=== PATIENT | male | born 1955 | race Two or more races ===

== ENCOUNTER 2023-06-30 08:15 | Inpatient (IN) | payer MEDICARE, MEDICAID ==
[~2023-06-30] VITALS: Ht 188 cm; Wt 83.0 kg
[2023-06-30 08:51] VITALS: RESP 18; O2SAT 98
[2023-06-30 09:14] LABS: Basophils # (auto) 0 10 ^3/uL (0-0.2); Basophils % (auto) 0.5 % (0.0-2.0); Eosinophils # (auto) 0 10 ^3/uL (0-0.8); Eosinophils % (auto) 0.2 % (0.0-7.0); Hematocrit 41.5 % (41.0-53.0); Hemoglobin 13.4 g/dL (13.5-17.5); Lymphocytes # (auto) 1.6 10 ^3/uL (0.4-5.4); Lymphocytes % (auto) 17.7 % (10.0-50.0); Mean Corpuscular Hgb Conc. 32.4 g/dL (32.0-36.0); Mean Corpuscular Volume 95.6 fL (80.0-100.0); Monocytes # (auto) 1.2 10 ^3/uL (0-1.3); Monocytes % (auto) 13.3 % (0.0-12.0); Neutrophils % (auto) 68.3 % (37.0-80.0); Nucleated Red Blood Cells % 0.1 %; Red Blood Cells 4.34 10^6/uL (4.5-5.90); White Blood Cell 8.8 10^3/uL (4.4-10.8)
[2023-06-30 09:31] LABS: Alanine Aminotransferase 50 U/L (7-40); Alkaline Phosphatase 147 U/L (46-116); Anion Gap 11 (5-15); Aspartate Aminotransferase 75 U/L (13-40); BUN/Creatinine Ratio 19.6 (10.0-20.0); Bilirubin, Total 2.8 mg/dL (0.2-1.0); Blood Alcohol < 3.0 mg/dL (<10); Blood Urea Nitrogen 27 mg/dL (9-23); Calcium 9.5 mg/dL (8.7-10.4); Carbon Dioxide 23 mmol/L (20-30); Chloride 110 mmol/L (98-107); Glucose 102 mg/dL (74-106); Potassium 4.3 mmol/L (3.5-5.1); Sodium 144 mmol/L (136-145); Total Protein 6.4 g/dL (5.7-8.2)
[2023-06-30] MEDS ORDERED: ENOXAPARIN SOD 100 MG/1 ML SYRINGE SC ONE (09:45)
[2023-06-30] MEDS ORDERED: ASPirin 325 MG TAB PO ONE (09:45)
[2023-06-30] MEDS ORDERED: OLAN1TAB19 PO (11:55)
[2023-06-30] MEDS ORDERED: TRAZ-228 PO (11:55)
[2023-06-30] MEDS ORDERED: SERT-206 PO (11:55)
[2023-06-30] MEDS ORDERED: GABA-1250 PO (11:55)
[2023-06-30] MEDS ORDERED: DILT-104 PO (11:55)
[2023-06-30] MEDS ORDERED: ISOS120T4 PO (11:55)
[2023-06-30] MEDS ORDERED: HYDR-4298 PO (11:55)
[2023-06-30] MEDS ORDERED: MORPHINE SULFATE INJ 2 MG/ml SYRG IV PRN (12:00)
[2023-06-30] MEDS ORDERED: ACETAMINOPHEN 325 MG TAB PO PRN (12:00)
[2023-06-30] MEDS ORDERED: ONDANSETRON HCL 4 MG/2 ML VIAL IV PRN (12:00)
[2023-06-30] MEDS ORDERED: LORazepam 2MG/ML-1ML VIAL IM ONE (12:00)
[2023-06-30] MEDS ORDERED: NITROGLYCERIN 0.4 MG SL TAB SL PRN (12:00)
[2023-06-30] MEDS ORDERED: DOCUSATE SOD 100 MG CAP PO PRN (12:00)
[2023-06-30] MEDS ORDERED: LABETALOL HCL 5 MG/ML 4ML SYRINGE IV PRN (12:15)
[2023-06-30 12:40] LABS: INR 1.42 (0.9-1.15); Partial Thromboplastin Time 29.5 SEC (24.5-34.5); Prothrombin Time 14.6 sec (9.3-11.8)
[2023-06-30] MEDS ORDERED: PATIENTS OWN MEDICATION (Hydralazine Hcl 1 TAB) PO SCH (14:00)
[2023-06-30] MEDS: GABAPENTIN 300 MG CAP PO SCH ×2 (14:35→22:00)
[2023-06-30 15:40] VITALS: PULSE 147; RESP 24; O2SAT 93
[2023-06-30] MEDS ORDERED: LORazepam 2MG/ML-1ML VIAL IV PRN (15:45)
[2023-06-30] MEDS ORDERED: LORazepam 2MG/ML-1ML VIAL ONE (15:51)
[2023-06-30] MEDS ORDERED: METOPROLOL TARTRATE 1MG/1ML-5ML VIAL IV ONE (16:00)
[2023-06-30] MEDS ORDERED: FUROSEMIDE 40 MG/4 ML VIAL IV ONE (16:15)
[2023-06-30 16:38] LABS: Urine Bacteria NONE SEEN /hpf (None Seen); Urine Blood Negative /uL (Negative); Urine Clarity Clear (Clear); Urine Color Yellow (Yellow); Urine Hyaline Cast FEW /lpf (0 - 2); Urine Protein, UAD 1+ (Negative); Urine Specific Gravity 1.029 (1.001-1.035); Urine WBC 2 /hpf (0 - 3); Urine pH 5.5 (5.0-8.0)
[2023-06-30] MEDS ORDERED: dilTIAZem 25 MG/5 ML VIAL IV ONE (16:45)
[2023-06-30 16:52] LABS: Amphetamine Screen, Urine Neg (NEGATIVE); Barbiturate Scree,Urine Neg (NEGATIVE); Benzodiazephine Screen, Urine Neg (NEGATIVE); Cannabinoid Screen, Urine Pos (NEGATIVE); Cocaine Screen, Urine Neg (NEGATIVE); Opiate Scree,Urine Neg (NEGATIVE); Phencyclidine Screen, Urine Neg (NEGATIVE)
[2023-06-30] MEDS: dilTIAZem 125mg/125ml BAG KIT 100 ML IV SCH (16:57)
[2023-06-30] MEDS: FUROSEMIDE 20 MG/2 ML VIAL IV SCH (18:28)
[2023-06-30 19:42] VITALS: PULSE 101; RESP 22; O2SAT 98
[2023-06-30] MEDS: ATORVASTATIN 20 MG TAB PO SCH (22:00)
[2023-06-30] MEDS ORDERED: OLANZAPINE PO SCH (22:00)
[2023-06-30] MEDS: traZODone HCL 50 MG TAB PO SCH (22:00)
[2023-06-30] MEDS: hydrALAZINE HCL 25 MG TAB PO SCH (22:00)
[2023-07-01] MEDS: dilTIAZem 125mg/125ml BAG KIT 100 ML IV SCH (00:22)
[2023-07-01 05:10] LABS: Basophils # (auto) 0.1 10 ^3/uL (0-0.2); Basophils % (auto) 1.1 % (0.0-2.0); Eosinophils # (auto) 0.3 10 ^3/uL (0-0.8); Eosinophils % (auto) 3.4 % (0.0-7.0); Hematocrit 39.2 % (41.0-53.0); Lymphocytes # (auto) 1.4 10 ^3/uL (0.4-5.4); Lymphocytes % (auto) 18.5 % (10.0-50.0); Mean Corpuscular Hemoglobin 31.2 pg (28.0-32.0); Mean Corpuscular Hgb Conc. 33.2 g/dL (32.0-36.0); Mean Corpuscular Volume 93.9 fL (80.0-100.0); Monocytes # (auto) 0.9 10 ^3/uL (0-1.3); Monocytes % (auto) 11.9 % (0.0-12.0); Neutrophils # (auto) 4.8 10 ^3/uL (1.6-8.6); Neutrophils % (auto) 65.1 % (37.0-80.0); Nucleated Red Blood Cells % 0.1 %; Red Blood Cells 4.17 10^6/uL (4.5-5.90); Red Cell Distribution Width 15.8 % (11.8-14.3); White Blood Cell 7.4 10^3/uL (4.4-10.8)
[2023-07-01] MEDS: GABAPENTIN 300 MG CAP PO SCH ×3 (05:27→23:02)
[2023-07-01] MEDS: hydrALAZINE HCL 25 MG TAB PO SCH ×3 (05:28→21:35)
[2023-07-01] MEDS: FUROSEMIDE 20 MG/2 ML VIAL IV SCH ×2 (05:28→18:00)
[2023-07-01] MEDS: MORPHINE SULFATE INJ 2 MG/ml SYRG IV PRN ×2 (05:30→09:33)
[2023-07-01 05:32] LABS: Alanine Aminotransferase 47 U/L (7-40); Alkaline Phosphatase 125 U/L (46-116); Calcium 8.6 mg/dL (8.7-10.4); Carbon Dioxide 28 mmol/L (20-30); Chloride 109 mmol/L (98-107); Glucose 91 mg/dL (74-106); Potassium 3.3 mmol/L (3.5-5.1)
[2023-07-01 05:33] LABS: Albumin 3.2 g/dL (3.2-4.8); Anion Gap 4 (5-15); Aspartate Aminotransferase 67 U/L (13-40); BUN/Creatinine Ratio 20.6 (10.0-20.0); Bilirubin, Total 1.5 mg/dL (0.2-1.0); Blood Urea Nitrogen 28 mg/dL (9-23); Sodium 141 mmol/L (136-145); Total Protein 5.2 g/dL (5.7-8.2)
[2023-07-01 05:45] LABS: LDL Cholesterol 71 mg/dL (< 100); Triglycerides 78 mg/dL (< 150)
[2023-07-01 05:46] LABS: Cholesterol 124 mg/dL (< 200); HDL Cholesterol 39 mg/dL (40-59)
[2023-07-01 07:25] VITALS: PULSE 109; RESP 20; O2SAT 95
[2023-07-01] MEDS: SERTRALINE HCL 50 MG TAB PO SCH (09:28)
[2023-07-01] MEDS: ASPirin-EC 81 mg tab PO SCH (09:28)
[2023-07-01] MEDS: ENOXAPARIN SOD 100 MG/1 ML SYRINGE SC SCH ×2 (09:28→23:01)
[2023-07-01] MEDS: METOPROLOL SUCCINATE XL 50 MG TAB PO SCH (09:32)
[2023-07-01] MEDS ORDERED: PATIENTS OWN MEDICATION (Isosorbide Mononitrate (Isosorbide Mononitrate Er) 1 TAB) PO SCH (10:00)
[2023-07-01] MEDS ORDERED: ENOXAPARIN SOD 40 MG/0.4 ML SYRINGE SC SCH (10:00)
[2023-07-01] MEDS ORDERED: PANTOPRAZOLE 40 MG/10 ML VIAL INJ IV SCH (10:00)
[2023-07-01] MEDS ORDERED: dilTIAZem 120MG ER CAP PO SCH (10:00)
[2023-07-01] MEDS ORDERED: POTASSIUM CHL 20 Meq TABLET PO ONE (10:15)
[2023-07-01] MEDS ORDERED: CALCIUM GLUC 1,000mg/50ml-NS 50 ML IV ONE ×2 (15:45→15:54)
[2023-07-01 20:58] VITALS: PULSE 56; RESP 24; O2SAT 93
[2023-07-01] MEDS ORDERED: ALBUMIN 5% 250 ML IV ONE (21:30)
[2023-07-01] MEDS: ATORVASTATIN 20 MG TAB PO SCH (23:01)
[2023-07-01] MEDS: traZODone HCL 50 MG TAB PO SCH (23:02)
[2023-07-02 05:18] LABS: Basophils # (auto) 0 10 ^3/uL (0-0.2); Basophils % (auto) 0.5 % (0.0-2.0); Eosinophils # (auto) 0.3 10 ^3/uL (0-0.8); Eosinophils % (auto) 3.5 % (0.0-7.0); Hemoglobin 12.8 g/dL (13.5-17.5); Mean Corpuscular Hgb Conc. 32.8 g/dL (32.0-36.0); Mean Corpuscular Volume 94.6 fL (80.0-100.0); Monocytes # (auto) 1.2 10 ^3/uL (0-1.3); Monocytes % (auto) 15.5 % (0.0-12.0); Neutrophils # (auto) 4.4 10 ^3/uL (1.6-8.6); Neutrophils % (auto) 55.5 % (37.0-80.0); Red Blood Cells 4.12 10^6/uL (4.5-5.90); Red Cell Distribution Width 15.9 % (11.8-14.3); White Blood Cell 7.8 10^3/uL (4.4-10.8)
[2023-07-02 05:36] LABS: Alanine Aminotransferase 73 U/L (7-40); Albumin 3.6 g/dL (3.2-4.8); Alkaline Phosphatase 123 U/L (46-116); Anion Gap 5 (5-15); Aspartate Aminotransferase 118 U/L (13-40); BUN/Creatinine Ratio 17.8 (10.0-20.0); Bilirubin, Total 1.1 mg/dL (0.2-1.0); Blood Urea Nitrogen 31 mg/dL (9-23); Calcium 8.9 mg/dL (8.7-10.4); Carbon Dioxide 27 mmol/L (20-30); Chloride 106 mmol/L (98-107); Glucose 102 mg/dL (74-106); Potassium 3.9 mmol/L (3.5-5.1); Sodium 138 mmol/L (136-145); Total Protein 5.9 g/dL (5.7-8.2)
[2023-07-02] MEDS: MORPHINE SULFATE INJ 2 MG/ml SYRG IV PRN ×2 (05:48→12:32)
[2023-07-02] MEDS: FUROSEMIDE 20 MG/2 ML VIAL IV SCH ×2 (06:00→18:07)
[2023-07-02] MEDS: hydrALAZINE HCL 25 MG TAB PO SCH ×2 (06:00→12:33)
[2023-07-02] MEDS: GABAPENTIN 300 MG CAP PO SCH ×3 (06:33→22:08)
[2023-07-02 07:30] VITALS: PULSE 97; RESP 16; O2SAT 95
[2023-07-02] MEDS: HYDROcodone-ACET 5/325MG TAB PO PRN (09:00)
[2023-07-02] MEDS: ENOXAPARIN SOD 100 MG/1 ML SYRINGE SC SCH (09:50)
[2023-07-02] MEDS: ASPirin-EC 81 mg tab PO SCH (09:51)
[2023-07-02] MEDS: SERTRALINE HCL 50 MG TAB PO SCH (09:51)
[2023-07-02] MEDS: PANTOPRAZOLE 40 MG TAB PO SCH (09:51)
[2023-07-02] MEDS: METOPROLOL SUCCINATE XL 50 MG TAB PO SCH (09:51)
[2023-07-02] MEDS: OLANZapine 5 MG TAB PO SCH (09:52)
[2023-07-02] MEDS ORDERED: LOSARTAN POTASSIUM 50 MG TAB PO SCH (10:00)
[2023-07-02] MEDS ORDERED: ISOSORBIDE MONONITRATE ER 60 MG TAB PO SCH (10:00)
[2023-07-02 11:05] VITALS: RESP 18
[2023-07-02 12:38] VITALS: BP 115/54; PULSE 79; RESP 19; TEMP 98.2; O2SAT 95
[2023-07-02 17:00] VITALS: BP 112/77; PULSE 97; RESP 17; TEMP 98.3; O2SAT 93
[2023-07-02 20:00] VITALS: PULSE 100; RESP 18; O2SAT 97
[2023-07-02 22:00] VITALS: BP 109/67; PULSE 82; RESP 20; TEMP 97.5; O2SAT 96
[2023-07-02] MEDS: APIXABAN 5 MG TAB PO SCH (22:08)
[2023-07-02] MEDS: traZODone HCL 50 MG TAB PO SCH (22:08)
[2023-07-02] MEDS: ATORVASTATIN 20 MG TAB PO SCH (22:12)
[2023-07-03] VITALS (7 sets, daily range): BP systolic 119–139; BP diastolic 44–92; PULSE 64–107; RESP 16–18; TEMP 97.8–98.4; O2SAT 91–95
[2023-07-03] MEDS: GABAPENTIN 300 MG CAP PO SCH ×3 (05:09→21:10)
[2023-07-03] MEDS: FUROSEMIDE 20 MG/2 ML VIAL IV SCH ×2 (05:09→17:45)
[2023-07-03] MEDS: MORPHINE SULFATE INJ 2 MG/ml SYRG IV PRN ×3 (05:10→21:14)
[2023-07-03 06:27] LABS: Basophils # (auto) 0.1 10 ^3/uL (0-0.2); Basophils % (auto) 1.3 % (0.0-2.0); Eosinophils # (auto) 0.3 10 ^3/uL (0-0.8); Eosinophils % (auto) 5.5 % (0.0-7.0); Hemoglobin 12.6 g/dL (13.5-17.5); Lymphocytes # (auto) 1.4 10 ^3/uL (0.4-5.4); Lymphocytes % (auto) 23.4 % (10.0-50.0); Mean Corpuscular Hemoglobin 31.5 pg (28.0-32.0); Mean Corpuscular Volume 95.6 fL (80.0-100.0); Monocytes # (auto) 0.7 10 ^3/uL (0-1.3); Monocytes % (auto) 11.6 % (0.0-12.0); Neutrophils # (auto) 3.4 10 ^3/uL (1.6-8.6); Neutrophils % (auto) 58.2 % (37.0-80.0); Nucleated Red Blood Cells % 0.2 %; Red Blood Cells 3.98 10^6/uL (4.5-5.90); White Blood Cell 5.9 10^3/uL (4.4-10.8)
[2023-07-03 06:40] LABS: Alanine Aminotransferase 87 U/L (7-40); Alkaline Phosphatase 120 U/L (46-116); Anion Gap 5 (5-15); BUN/Creatinine Ratio 17.7 (10.0-20.0); Blood Urea Nitrogen 26 mg/dL (9-23); Calcium 8.9 mg/dL (8.7-10.4); Carbon Dioxide 30 mmol/L (20-30); Chloride 106 mmol/L (98-107); Glucose 99 mg/dL (74-106); Potassium 5.1 mmol/L (3.5-5.1); Sodium 141 mmol/L (136-145)
[2023-07-03 06:41] LABS: Albumin 3.8 g/dL (3.2-4.8); Aspartate Aminotransferase 111 U/L (13-40); Bilirubin, Total 0.7 mg/dL (0.2-1.0); Total Protein 5.8 g/dL (5.7-8.2)
[2023-07-03] MEDS: SERTRALINE HCL 50 MG TAB PO SCH (09:14)
[2023-07-03] MEDS: OLANZapine 5 MG TAB PO SCH (09:14)
[2023-07-03] MEDS: ASPirin-EC 81 mg tab PO SCH (09:14)
[2023-07-03] MEDS: METOPROLOL SUCCINATE XL 50 MG TAB PO SCH (09:15)
[2023-07-03] MEDS: LOSARTAN POTASSIUM 25 MG TAB PO SCH (09:16)
[2023-07-03] MEDS: PANTOPRAZOLE 40 MG TAB PO SCH (09:16)
[2023-07-03] MEDS: APIXABAN 5 MG TAB PO SCH ×2 (09:16→21:10)
[2023-07-03] MEDS: NICOTINE 14 MG/24HR TOPICAL PATCH TD SCH (09:19)
[2023-07-03] MEDS: HYDROcodone-ACET 5/325MG TAB PO PRN (14:55)
[2023-07-03] MEDS: traZODone HCL 50 MG TAB PO SCH (21:09)
[2023-07-03] MEDS: ATORVASTATIN 20 MG TAB PO SCH (21:10)
[2023-07-04] MEDS: HYDROcodone-ACET 5/325MG TAB PO PRN ×2 (03:21→08:59)
[2023-07-04 05:10] VITALS: BP 131/78; PULSE 93; RESP 20; TEMP 98; O2SAT 97
[2023-07-04] MEDS: GABAPENTIN 300 MG CAP PO SCH ×2 (06:19→13:50)
[2023-07-04] MEDS: FUROSEMIDE 20 MG/2 ML VIAL IV SCH ×2 (06:20→18:00)
[2023-07-04] MEDS: MORPHINE SULFATE INJ 2 MG/ml SYRG IV PRN (06:21)
[2023-07-04 06:29] LABS: Alanine Aminotransferase 68 U/L (7-40); Albumin 3.9 g/dL (3.2-4.8); Alkaline Phosphatase 119 U/L (46-116); Anion Gap 3 (5-15); Aspartate Aminotransferase 65 U/L (13-40); BUN/Creatinine Ratio 19.1 (10.0-20.0); Blood Urea Nitrogen 26 mg/dL (9-23); Calcium 8.7 mg/dL (8.7-10.4); Carbon Dioxide 33 mmol/L (20-30); Chloride 105 mmol/L (98-107); Glucose 86 mg/dL (74-106); Potassium 4.4 mmol/L (3.5-5.1); Sodium 141 mmol/L (136-145)
[2023-07-04 06:30] LABS: Bilirubin, Total 0.8 mg/dL (0.2-1.0); Total Protein 5.9 g/dL (5.7-8.2)
[2023-07-04 06:31] LABS: Basophils # (auto) 0.1 10 ^3/uL (0-0.2); Basophils % (auto) 1.1 % (0.0-2.0); Eosinophils # (auto) 0.3 10 ^3/uL (0-0.8); Eosinophils % (auto) 4.7 % (0.0-7.0); Hematocrit 37.9 % (41.0-53.0); Hemoglobin 12.5 g/dL (13.5-17.5); Lymphocytes # (auto) 0.9 10 ^3/uL (0.4-5.4); Lymphocytes % (auto) 14.4 % (10.0-50.0); Mean Corpuscular Hemoglobin 31.3 pg (28.0-32.0); Mean Corpuscular Hgb Conc. 32.9 g/dL (32.0-36.0); Mean Corpuscular Volume 95.3 fL (80.0-100.0); Monocytes # (auto) 0.9 10 ^3/uL (0-1.3); Monocytes % (auto) 14.4 % (0.0-12.0); Neutrophils # (auto) 4.1 10 ^3/uL (1.6-8.6); Neutrophils % (auto) 65.4 % (37.0-80.0); Nucleated Red Blood Cells % 0.1 %; Red Blood Cells 3.98 10^6/uL (4.5-5.90); Red Cell Distribution Width 15.9 % (11.8-14.3); White Blood Cell 6.3 10^3/uL (4.4-10.8)
[2023-07-04 08:00] VITALS: PULSE 97
[2023-07-04] MEDS: ASPirin-EC 81 mg tab PO SCH (08:58)
[2023-07-04] MEDS: SERTRALINE HCL 50 MG TAB PO SCH (08:58)
[2023-07-04] MEDS: OLANZapine 5 MG TAB PO SCH (08:59)
[2023-07-04] MEDS: LOSARTAN POTASSIUM 25 MG TAB PO SCH (08:59)
[2023-07-04 09:00] VITALS: BP 128/82; PULSE 61; RESP 14; TEMP 98; O2SAT 95
[2023-07-04] MEDS: NICOTINE 14 MG/24HR TOPICAL PATCH TD SCH (09:00)
[2023-07-04] MEDS: METOPROLOL SUCCINATE XL 50 MG TAB PO SCH (09:00)
[2023-07-04] MEDS: APIXABAN 5 MG TAB PO SCH (09:00)
[2023-07-04] MEDS: PANTOPRAZOLE 40 MG TAB PO SCH (09:00)
[2023-07-04] MEDS ORDERED: METO-6 PO (11:37)
[2023-07-04] MEDS ORDERED: OLAN1TAB7 PO (11:37)
[2023-07-04] MEDS ORDERED: LOS25T PO (11:37)
[2023-07-04] MEDS ORDERED: ATOR20TA50 PO (11:37)
[2023-07-04] MEDS ORDERED: GABA-1250 PO (11:37)
[2023-07-04] MEDS ORDERED: TRAZ-227 PO (11:37)
[2023-07-04] MEDS ORDERED: APIX5TAB PO (11:37)
[2023-07-04] MEDS ORDERED: FURO1TAB31 PO (11:37)
[2023-07-04] MEDS ORDERED: SERT50TA PO (11:37)
[2023-07-04 13:00] VITALS: BP 117/66; PULSE 96; RESP 18; TEMP 96.1; O2SAT 94
[2023-07-04 17:00] VITALS: BP 144/93; PULSE 110; RESP 18; TEMP 97.7; O2SAT 93
== END 2023-07-04 18:15 | disposition home or self-care (01) | DRG 194 ==
LOC: ER 08:15 → TELE 12:01 → TELE-WESTW 07-02 10:57
PROVIDERS: ADMIT Internal Medicine
DX: I11.0 Hypertensive heart disease with heart failure (principal); G92.8 Other toxic encephalopathy; I21.A1 Myocardial infarction type 2; N17.9 Acute kidney failure, unspecified; I50.21 Acute systolic (congestive) heart failure; I48.20 Chronic atrial fibrillation, unspecified; I16.1 Hypertensive emergency; R74.01 Elevation of levels of liver transaminase levels; F20.9 Schizophrenia, unspecified; F31.9 Bipolar disorder, unspecified; I25.10 Atherosclerotic heart disease of native coronary artery without angina pectoris
CPT/HCPCS: 36415; 71045; 76775; 80053; 80061; 80307; 80320; 81001; 82140; 83880; 84443; 84484; 85025; 85610; 85730; 93005; 93306; 96365; 96372; 96375; 96376; 97163; 99291; C9113; G0378; J2405; J3490